=== PATIENT | female | born 1955 | race Caucasian/White ===

== ENCOUNTER → 2020-02-01 16:01 | Outpatient (POV) | payer SELFPAY | PROVIDERS: Visit Provider Dermatology | DX: Z00.00 Encounter for general adult medical examination without abnormal findings (principal) ==

== ENCOUNTER → 2022-03-05 08:46 | Outpatient (CLI) | payer MEDICARE, OTHER, SELFPAY ==
--- NOTE | 2022-03-05 08:57 | XR_ITS ---
FINAL REPORT CLINICAL HISTORY: PAIN FINDINGS: Four views of the left knee were obtained. There is no acute fracture or dislocation. Moderate degenerative change of the tibial femoral joint. Severe degenerative change of the patellofemoral joint. IMPRESSION: Advanced degenerative change. Reviewed, Interpreted and Dictated by Joey Neumann MD Transcribed by Louis Camarena Authenticated and [facility]
== END ==
PROVIDERS: PCP Emergency Medicine; Visit Provider Physician Assistant Surgical
DX: M25.562 Pain in left knee (principal)
CPT/HCPCS: 73562

== ENCOUNTER → 2023-01-02 13:23 | Outpatient (CLI) | payer MEDICARE, OTHER, SELFPAY ==
--- NOTE | 2023-01-02 13:27 | XR_ITS ---
FINAL REPORT CLINICAL HISTORY: rt foot pain COMPARISON: None FINDINGS: RIGHT FOOT: Three views of the right foot were obtained. There is no acute fracture or dislocation. There is mild degenerative change. There is no soft tissue abnormality. IMPRESSION: Mild degenerative change without acute bony abnormality. Reviewed, Interpreted and Dictated by Mark Lawrence III, MD Transcribed by Magi Carrasco Authenticated and [facility]
== END ==
PROVIDERS: PCP Emergency Medicine; Visit Provider Orthopaedic Surgery
DX: M79.671 Pain in right foot (principal)
CPT/HCPCS: 73630

== ENCOUNTER 2024-10-28 12:54 | Outpatient (CLI) | payer MEDICARE, OTHER, SELFPAY ==
--- NOTE | 2024-10-28 12:55 | XR_ITS ---
FINAL REPORT CLINICAL HISTORY: left knee pain FINDINGS: AP, lateral and oblique views of the left knee were obtained. There is no prior exam for comparison. There is no acute osseous abnormality of the left knee. There is degenerative joint disease most pronounced in the patellofemoral compartment. The soft tissues are normal. There is no joint effusion. IMPRESSION: No acute osseous abnormality of the left knee. Reviewed, Interpreted and Dictated by Keara Roberts MD Transcribed by Karey Ballard Authenticated and [facility]
--- OUTSIDE RECORDS SUMMARY | 2024-10-28 12:59 | XMS_ITS | Encounter Summary ---
Author Organization [employer] ([place], [place], [place], [place]) Address [address] [place] [address] Care Team Providers Care Channel Sales Manager Name Role Phone Unavailable Primary Care Provider Unavailabl e Encounter Details Date Type Department Care Team (Late st Contact Info) Description 03/10/2019 Transcribed Document [facility] Family Medicine [facility] [place] [address] ProviderZaid MD [address] [place] [id number] Social History Tobacco Use Types Packs/Day Years Used Date Smoking Tobacco: Never Assessed Comments Unknown Sex and Gender Information Value Date Recorded Sex Assigned at Not on file Legal Sex Female 6:51 PM CDT Gender Identity Not on file Sexual Orientation Not on file documented as of this encounter Miscellaneous Notes * Cerner Conversion Note - Zaid Rutherford MD - 03/10/2019 8:15 AM 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 REFERRING PHYSICIAN: 1. Dr. Niurka Elias. 2. DARRYL Reynolds. PROCEDURE: Standard left heart catheterization. TECHNIQUE: A 5/6-Maltese sheath placed in the right radial artery. Elijah catheter was used for selective angiography of left coronary artery obtaining pressures in the left ventricle. JR4 diagnostic catheter was used for selective angiography of the right coronary artery. Following the diagnostic catheterization, the radial artery sheath was removed and the access site successfully compressed using a TR band. No complications. HEMODYNAMICS: Left ventricle 120/15 mmHg, aorta 120/60 mmHg. DIAGNOSES: 1. Angiographically normal coronary artery. 2. Normal left ventricular filling pressure without gradient across the aortic valve. CORONARY ANATOMY: 1. Left main trunk: Angiographically normal. 2. LAD: Large caliber vessel, which gives rise to several small caliber diagonal branches before extending beyond the apex. The LAD and diagonal branches are angiographically normal. 3. Circumflex artery: Large caliber vessel, which gives rise to a tiny high lateral branch, moderate caliber lateral branch, small caliber posterolateral branch. The circumflex artery is angiographically normal. 4. Right coronary artery: Dominant vessel. Large caliber vessel, which gives rise to a small caliber posterior descending artery and a small caliber posterolateral branch. The right coronary artery looks angiographically normal. 5. Left ventricle: Normal left ventricular filling pressure without gradient across the aortic valve. IMPRESSION: Angiographically, the patient has normal coronary arteries. There is no indication for revascularization. Assessment or noncardiac dyspnea and chest pain and risk factor modification recommended. /[id number] Gabriel Nolan MD SSL/AQ / SSL / MODL /[id number] CC: DARRYL Madrigal documented in this encounter Plan of Treatment Not on file documented as of this encounter Visit Diagnoses Not on filedocumented in this encounter
--- OUTSIDE RECORDS SUMMARY | 2024-10-28 12:59 | XMS_ITS | Encounter Summary ---
Author Organization [employer] ([place], [place], [place], [place]) Address [address] [place] [address] Care Team Providers Care Bone Crusher Name Role Phone Unavailable Primary Care Provider Unavailabl e Encounter Details Date Type Department Care Team (Late st Contact Info) Description 03/10/[address] 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 Adult Entered On: 03/10/2019 6:26 EST Performed On: 03/10/2019 6:19 EST by EZEKIEL FLEMING RN Height and Weight, Clinical Dosing Height Source : Stated Height Entry Format : [place] Height, Feet : 5 ft(Converted to: 152 cm, 60 Inch) Height, Inches : 4 Inch(Converted to: 0 ft 4 Inch, 10.16 cm) Clinical Height : 162.56 cm Weight Source : Standing scale Weight Entry Format : [place] Clinical Dosing Weight : 98.18 kg Weight, Pounds : 216 lb Body Surface Area (BSA) : 2.02 m2 Body Mass Index : 37.2 kg/m2 (HI) [place] Body Weight : 54 kg EZEKIEL FLEMING RN - 03/10/2019 6:19 EST Health Histories Smoking Status : Former smoker, quit more than 30 days ago Smokeless Tobacco Status : Never EZEKIEL FLEMING RN - 03/10/2019 6:19 EST Social History (As Of: 03/10/2019 06:26:10 EST) Tobacco: Former smoker, quit more than 30 days ago Smoking Status. Years of Use: 12. Packs/Tins Daily: 1. Last Used: quit 20 years ago. (Last Updated: 03/10/2019 06:19:48 EST by EZEKIEL FLEMING, RN) Alcohol: Alcohol Use History Yes. Alcohol Use Frequency Rarely. (Last Updated: 03/10/2019 06:19:56 EST by EZEKIEL FLEMING, RN) Substance Abuse: Drug Use Hx: No. (Last Updated: 03/10/2019 06:20:00 EST by EZEKIEL FLEMING, RN) Infectious Disease History Infectious Disease History : Chicken pox/Shingles, Influenza, Measles Fever/Chills Last 48 Hours : No Travel To Regions with Travel Advisories : No Travel Outside [place] Within Last 30 Days : No Contact With Traveler to Advisory Region : No Tuberculosis Symptoms : None EZEKIEL FLEMING RN - 03/10/2019 6:19 EST Anesthesia/Transfusion History Family History of Anesthesia Reaction : No prior transfusion(s) Blood Transfusion Acceptable to Patient : Yes Transfusion History : Prior anesthesia without reaction Family History of Anesthesia Reaction : None EZEKIEL FLEMING RN - 03/10/2019 6:19 EST Functional Assessment Living Situation : Home Patient Lives With : Alone Persons Assisting Patient at Home : Alone Current Daily Living Assistance : None Mobility Assistance Prior to Admission : Independent Current Home Treatments : None EZEKIEL FLEMING RN - 03/10/2019 6:19 EST [place] Suicide Severity Rating Scale (C-SSRS) CSSRS Past Month Wish to be : No CSSRS Past Month Suicidal Thoughts : No CSSRS Lifetime Suicide Behavior : No Suicide Severity Rating Score : 0 Suicide Severity Rating : No Additional Care Required at this time EZEKIEL FLEMING RN - 03/10/2019 6:19 EST Psychosocial History Does Someone Depend on You for Care? : No Do You Have a History of the Following? : Patient denies history Currently in Unsafe Situation : No EZEKIEL FLEMING RN - 03/10/2019 6:19 EST Advance Directive Patient has Advance Directive *Q : Yes, Advance Directive not with the patient Advance Directive Type : Living will Copy Advance Directive Verified/on Chart : No EZEKIEL FLEMING RN - 03/10/2019 6:19 EST Spiritual/Cultural Needs Significant Loss/Crisis in Past 3 Years : No Any Spiritual/Cultural Needs or Requests : Yes Mandaen Preference : Mandaen EZEKIEL FLEMING RN - 03/10/2019 6:19 EST Teaching/Learning Assessment Barriers To Learning : None evident Individuals Taught : Patient Readiness to Learn : Cooperative Learning Style Preferences Patient : Verbal explanation EZEKIEL FLEMING RN - 03/10/2019 6:19 EST Education Topics, Periop Preadmission Perioperative Education Grid IV's : Verbalizes understanding NPO Status/Directions : Verbalizes understanding Responsible Adult : Verbalizes understanding EZEKIEL FLEMING RN - 03/10/2019 6:19 EST General Info Arrived From : Home Mode of Arrival on Unit : Ambulatory Legal Guardian : Son Want Family/Rep/Phys Notified of Admit : No Emergency Contact #1 : Danilo Emergency Contact #1 Emergency Contact #1 Relationship : son Emergency Contact #2 : Mary Jane Emergency Contact #2 Emergency Contact #2 Relationship : sister Chief Complaint : here for cardiac cath Information Obtained From : Patient Primary Language : Mohawk Preferred Communication Mode : Verbal Communication Barrier : None EZEKIEL FLEMING RN - 03/10/2019 6:19 EST Vital Measurements Temperature Mode : Fahrenheit Temperature, Fahrenheit : 97.4 Deg F Clinical Temperature, C : 36.3 Deg C Pulse Method : Non-Invasive BP Device Peripheral Pulse Rate : 80 bpm Respiratory Rate : 16 Breaths/Min Blood Pressure Location : Arm, right upper Blood Pressure Source : Non-Invasive BP Device Systolic Blood Pressure : 160 mmHg (HI) Diastolic Blood Pressure : 84 mmHg Oxygen Saturation : 99 % Oxygen Therapy Mode : Room air EZEKIEL FLEMING RN - 03/10/2019 6:19 EST Sleep Apnea Risk Assmt Hx of Obstructive Sleep Apnea Diagnosis : No Snore Loudly : Yes Tired, Fatigued, or Sleepy During Day : No Observed Stopping Breathing During Sleep : No Have/Are Being Treated for Hypertension : No BMI Greater Than 35 kg/m2 : Yes Age over 50 Years Old : Yes Neck Circumference Greater Than 40 cm : No Gender Male : No STOP-BANG Sleep Apnea Risk Level Score : 3 EZEKIEL FLEMING RN - 03/10/2019 6:19 EST Luis Miguel Scale Luis Miguel Sensory Perception : No impairment Luis Miguel Moisture : Rarely moist Luis Miguel Activity : Walks frequently Luis Miguel Mobility : Slightly limited Luis Miguel Nutrition : Adequate Luis Miguel Friction and Shear : Potential problem Luis Miguel Score : 20 EZEKIEL FLEMING RN - 03/10/2019 6:19 EST Oxygen Therapy Oxygen Therapy Mode : Room air EZEKIEL FLEMING RN - 03/10/2019 6:19 EST Pain Assessment Pain Assessment : Initial assessment Pain Scale Used : 0-10 Scale EZEKIEL FLEMING RN - 03/10/2019 6:19 EST Fall Risk Scales ABCs Fall Injury Risk Identification : Bones ABC Fall Injury Risk : Moderate to high injury risk WOLFE Hx Falls Immediate/Within 3 Months : No Wolfe Secondary Diagnosis : No WOLFE Use of Ambulatory Aid : None WOLFE IV Therapy or IV Access : Yes Wolfe Gait/Transferring : Normal, bedrest, immobile Wolfe Mental Status : Oriented to own ability Wolfe Fall Risk Score : 20 WOLFE Fall Scale Risk Level : 0-24 Low Risk Little Neck Fall Interventions : Adequate lighting, Hourly comfort/safety rounds, Non-slip footwear, Personal items within reach, Room free of clutter/spills, Upper side-rails up, Wheels locked, Wires/Cords secured EZEKIEL FLEMING RN - 03/10/2019 6:19 EST Valuables and Belongings Valuables and Belongings : Clothing, Jewelry, Personal devices, Personal items, No assistive devices, No respiratory devices, No medications Clothing : Common streetwear Clothing Disposition : Bedside Personal Device Disposition : With patient Jewelry : Earrings Jewelry Disposition : With patient Personal Devices : Dentures, upper, Dentures, lower, Glasses Personal Items : Cazares, Cell phone, Credit cards, Purse, Wallet Personal Items Disposition : With family EZEKIEL FLEMING RN - 03/10/2019 6:19 EST Pain Scale Intensity : 0 EZEKIEL FLEMING RN - 03/10/2019 6:19 EST Image 4 - Images currently included in the form version of this document have not been included in the text rendition version of the form. Tosha Coma Tosha Best Motor Response : Obey commands Tosha Best Verbal Response : Oriented [place] Eye Opening Response : Spontaneous Tosha Coma Score : 15 EZEKIEL FLEMING RN - 03/10/2019 6:19 EST Electronically signed by [facility], [facility] Conversion Ultr[employer] Cerner at 06/20/2022 12:23 AM CDT documented in this encounter Plan of Treatment Not on file documented as of this encounter Visit Diagnoses Not on filedocumented in this encounter
--- OUTSIDE RECORDS SUMMARY | 2024-10-28 12:59 | XMS_ITS | Encounter Summary ---
Author Organization [employer] ([place], [place], [place], [place]) Address [address] [place] [address] Care Team Providers Care School Athletic Director Name Role Phone Unavailable Primary Care Provider Unavailabl e Encounter Details Date Type Department Care Team (Late st Contact Info) Description 03/10/2019 Transcribed Document [facility] [place] [facility] [place] [address] ProviderZaid MD [facility] [place] [address] Social History Tobacco Use Types Packs/Day Years Used Date Smoking Tobacco: Never Assessed Comments Unknown Sex and Gender Information Value Date Recorded Sex Assigned at Not on file Legal Sex Female 6:51 PM CDT Gender Identity Not on file Sexual Orientation Not on file documented as of this encounter Miscellaneous Notes * Cerner Conversion Note - Historical ProviderMD - 03/10/2019 9:13 AM MOLD OPERATOR Event Note Entered On: 03/10/2019 9:13 EST Performed On: 03/10/2019 9:13 EST by EZEKIEL FLEMING RN Event Note Event Date/Time : 03/10/2019 9:13 EST EZEKIEL FLEMING RN - 03/10/2019 9:13 EST Description of Event : 09: spoke with Coco Blanco RN regarding pt's blood pressure of 150's/107. Pt is asymptomatic. Dr. Nolan has spoken with pt about her hypertension and is changing her dose of Metoprolol to 50 mg daily at 1800. No new orders. PABLITO Salas CARLA L, RN - 03/10/2019 9:24 EST documented in this encounter Plan of Treatment Not on file documented as of this encounter Visit Diagnoses Not on filedocumented in this encounter
--- OUTSIDE RECORDS SUMMARY | 2024-10-28 12:59 | XMS_ITS | Encounter Summary ---
Author Organization [employer] ([place], [place], [place], [place]) Address [address] [place] [address] Care Team Providers Care Rougher Operator Name Role Phone Unavailable Primary Care Provider Unavailabl e Encounter Details Date Type Department Care Team (Late st Contact Info) Description 03/10/2019 Transcribed Document [facility] [place] Family Medicine [facility] [place] [address] ProviderZaid MD [address] [place] [address] Social History Tobacco Use Types Packs/Day Years Used Date Smoking Tobacco: Never Assessed Comments Unknown Sex and Gender Information Value Date Recorded Sex Assigned at Not on file Legal Sex Female 6:51 PM CDT Gender Identity Not on file Sexual Orientation Not on file documented as of this encounter Miscellaneous Notes * Cerner Conversion Note - Zaid Rutherford MD - 03/10/2019 8:43 AM [employer] Patient Education Materials Follows: Hypertension Hypertension, commonly called high blood pressure, is when the force of blood pumping through the arteries is too strong. The arteries are the blood vessels that carry blood from the heart throughout the body. Hypertension forces the heart to work harder to pump blood and may cause arteries to become narrow or stiff. Having untreated or uncontrolled hypertension can cause heart attacks, strokes, kidney disease, and other problems. A blood pressure reading consists of a higher number over a lower number. Ideally, your blood pressure should be below 120/80. The first ( top ) number is called the systolic pressure. It is a measure of the pressure in your arteries as your heart beats. The second ( bottom ) number is called the diastolic pressure. It is a measure of the pressure in your arteries as the heart relaxes. What are the causes? The cause of this condition is not known. What increases the risk? Some risk factors for high blood pressure are under your control. Others are not. Factors you can change ??? Smoking. ??? Having type 2 diabetes mellitus, high cholesterol, or both. ??? Not getting enough exercise or physical activity. ??? Being overweight. ??? Having too much fat, sugar, calories, or salt (sodium) in your diet. ??? Drinking too much alcohol. Factors that are difficult or impossible to change ??? Having chronic kidney disease. ??? Having a family history of high blood pressure. ??? Age. Risk increases with age. ??? Race. You may be at higher risk if you are -Chinese. ??? Gender. Men are at higher risk than women before age 45. After age 65, women are at higher risk than men. ??? Having obstructive sleep apnea. ??? Stress. What are the signs or symptoms? Extremely high blood pressure (hypertensive crisis) may cause: ??? Headache. ??? Anxiety. ??? Shortness of breath. ??? Nosebleed. ??? Nausea and vomiting. ??? Severe chest pain. ??? Jerky movements you cannot control (seizures). How is this diagnosed? This condition is diagnosed by measuring your blood pressure while you are seated, with your arm resting on a surface. The cuff of the blood pressure monitor will be placed directly against the skin of your upper arm at the level of your heart. It should be measured at least twice using the same arm. Certain conditions can cause a difference in blood pressure between your right and left arms. Certain factors can cause blood pressure readings to be lower or higher than normal (elevated) for a short period of time: ??? When your blood pressure is higher when you are in a health care provider's office than when you are at home, this is called white coat hypertension. Most people with this condition do not need medicines. ??? When your blood pressure is higher at home than when you are in a health care provider's office, this is called masked hypertension. Most people with this condition may need medicines to control blood pressure. If you have a high blood pressure reading during one visit or you have normal blood pressure with other risk factors: ??? You may be asked to return on a different day to have your blood pressure checked again. ??? You may be asked to monitor your blood pressure at home for 1 week or longer. If you are diagnosed with hypertension, you may have other blood or imaging tests to help your health care provider understand your overall risk for other conditions. How is this treated? This condition is treated by making healthy lifestyle changes, such as eating healthy foods, exercising more, and reducing your alcohol intake. Your health care provider may prescribe medicine if lifestyle changes are not enough to get your blood pressure under control, and if: ??? Your systolic blood pressure is above 130. ??? Your diastolic blood pressure is above 80. Your personal target blood pressure may vary depending on your medical conditions, your age, and other factors. Follow these instructions at home: Eating and drinking ??? Eat a diet that is high in fiber and potassium, and low in sodium, added sugar, and fat. An example eating plan is called the DASH (Dietary Approaches to Stop Hypertension) diet. To eat this way: ? Eat plenty of fresh fruits and vegetables. Try to fill half of your plate at each meal with fruits and vegetables. ? Eat whole grains, such as whole wheat pasta, brown rice, or whole grain bread. Fill about one quarter of your plate with whole grains. ? Eat or drink low-fat dairy products, such as skim milk or low-fat yogurt. ? Avoid fatty cuts of meat, processed or cured meats, and poultry with skin. Fill about one quarter of your plate with lean proteins, such as fish, chicken without skin, beans, eggs, and tofu. ? Avoid premade and processed foods. These tend to be higher in sodium, added sugar, and fat. ??? Reduce your daily sodium intake. Most people with hypertension should eat less than 1,500 mg of sodium a day. ??? Limit alcohol intake to no more than 1 drink a day for non women and 2 drinks a day for men. One drink equals 12 oz of beer, 5 oz of wine, or 1? oz of hard liquor. Lifestyle ??? Work with your health care provider to maintain a healthy body weight or to lose weight. Ask what an ideal weight is for you. ??? Get at least 30 minutes of exercise that causes your heart to beat faster (aerobic exercise) most days of the week. Activities may include walking, swimming, or biking. ??? Include exercise to strengthen your muscles (resistance exercise), such as pilates or lifting weights, as part of your weekly exercise routine. Try to do these types of exercises for 30 minutes at least 3 days a week. ??? Do not use any products that contain nicotine or tobacco, such as cigarettes and e-cigarettes. If you need help quitting, ask your health care provider. ??? Monitor your blood pressure at home as told by your health care provider. ??? Keep all follow-up visits as told by your health care provider. This is important. Medicines ??? Take vyby-ymi-sxgtsjv and prescription medicines only as told by your health care provider. Follow directions carefully. Blood pressure medicines must be taken as prescribed. ??? Do not skip doses of blood pressure medicine. Doing this puts you at risk for problems and can make the medicine less effective. ??? Ask your health care provider about side effects or reactions to medicines that you should watch for. Contact a health care provider if: ??? You think you are having a reaction to a medicine you are taking. ??? You have headaches that keep coming back (recurring). ??? You feel dizzy. ??? You have swelling in your ankles. ??? You have trouble with your vision. Get help right away if: ??? You develop a severe headache or confusion. ??? You have unusual weakness or numbness. ??? You feel faint. ??? You have severe pain in your chest or abdomen. ??? You vomit repeatedly. ??? You have trouble breathing. Summary ??? Hypertension is when the force of blood pumping through your arteries is too strong. If this condition is not controlled, it may put you at risk for serious complications. ??? Your personal target blood pressure may vary depending on your medical conditions, your age, and other factors. For most people, a normal blood pressure is less than 120/80. ??? Hypertension is treated with lifestyle changes, medicines, or a combination of both. Lifestyle changes include weight loss, eating a healthy, low-sodium diet, exercising more, and limiting alcohol. This information is not intended to replace advice given to you by your health care provider. Make sure you discuss any questions you have with your health care provider. Document Released: 02/17/2006 Document Revised: 01/15/2017 Document Reviewed: 01/15/2017 [employer] Interactive Patient Education ? 2019 [employer] Moderate Conscious Sedation, Adult, Care After These instructions provide you with information about caring for yourself after your procedure. Your health care provider may also give you more specific instructions. Your treatment has been planned according to current medical practices, but problems sometimes occur. Call your health care provider if you have any problems or questions after your procedure. What can I expect after the procedure? After your procedure, it is common: ??? To feel sleepy for several hours. ??? To feel clumsy and have poor balance for several hours. ??? To have poor judgment for several hours. ??? To vomit if you eat too soon. Follow these instructions at home: For at least 24 hours after the procedure: ??? Do not: ? Participate in activities where you could fall or become injured. ? Drive. ? Use heavy machinery. ? Drink alcohol. ? Take sleeping pills or medicines that cause drowsiness. ? Make important decisions or sign legal documents. ? Take care of children on your own. ??? Rest. Eating and drinking ??? Follow the diet recommended by your health care provider. ??? If you vomit: ? Drink water, juice, or soup when you can drink without vomiting. ? Make sure you have little or no nausea before eating solid foods. General instructions ??? Have a responsible adult stay with you until you are awake and alert. ??? Take btvh-jeg-gvlbocu and prescription medicines only as told by your health care provider. ??? If you smoke, do not smoke without supervision. ??? Keep all follow-up visits as told by your health care provider. This is important. Contact a health care provider if: ??? You keep feeling nauseous or you keep vomiting. ??? You feel light-headed. ??? You develop a rash. ??? You have a fever. Get help right away if: ??? You have trouble breathing. This information is not intended to replace advice given to you by your health care provider. Make sure you discuss any questions you have with your health care provider. Document Released: 12/08/2013 Document Revised: 07/22/2016 Document Reviewed: 06/08/2016 [employer] Interactive Patient Education ? 2019 [employer] [facility] Care Refer to this sheet in the next few weeks. These instructions provide you with information about caring for yourself after your procedure. Your health care provider may also give you more specific instructions. Your treatment has been planned according to current medical practices, but problems sometimes occur. Call your health care provider if you have any problems or questions after your procedure. What can I expect after the procedure? After your procedure, it is typical to have the following: ??? Bruising at the radial site that usually fades within 1?2 weeks. ??? Blood collecting in the tissue (hematoma) that may be painful to the touch. It should usually decrease in size and tenderness within 1?2 weeks. Follow these instructions at home: ??? Take medicines only as directed by your health care provider. ??? You may shower 24?48 hours after the procedure or as directed by your health care provider. Remove the bandage (dressing) and gently wash the site with plain soap and water. Pat the area dry with a clean towel. Do not rub the site, because this may cause bleeding. ??? Do not take baths, swim, or use a hot tub until your health care provider approves. ??? Check your insertion site every day for redness, swelling, or drainage. ??? Do not apply powder or lotion to the site. ??? Do not flex or bend the affected arm for 24 hours or as directed by your health care provider. ??? Do not push or pull heavy objects with the affected arm for 24 hours or as directed by your health care provider. ??? Do not lift over 10 lb (4.5 kg) for 5 days after your procedure or as directed by your health care provider. ??? Ask your health care provider when it is okay to: ? Return to work or school. ? Resume usual physical activities or sports. ? Resume sexual activity. ??? Do not drive home if you are discharged the same day as the procedure. Have someone else drive you. ??? You may drive 24 hours after the procedure unless otherwise instructed by your health care provider. ??? Do not operate machinery or power tools for 24 hours after the procedure. ??? If your procedure was done as an outpatient procedure, which means that you went home the same day as your procedure, a responsible adult should be with you for the first 24 hours after you arrive home. ??? Keep all follow-up visits as directed by your health care provider. This is important. Contact a health care provider if: ??? You have a fever. ??? You have chills. ??? You have increased bleeding from the radial site. Hold pressure on the site. Get help right away if: ??? You have unusual pain at the radial site. ??? You have redness, warmth, or swelling at the radial site. ??? You have drainage (other than a small amount of blood on the dressing) from the radial site. ??? The radial site is bleeding, and the bleeding does not stop after 30 minutes of holding steady pressure on the site. ??? Your arm or hand becomes pale, cool, tingly, or numb. This information is not intended to replace advice given to you by your health care provider. Make sure you discuss any questions you have with your health care provider. Document Released: 03/22/2011 Document Revised: 07/25/2016 Document Reviewed: 09/05/2014 [employer] Interactive Patient Education ? 2019 [employer]. Angiogram, Care After This sheet gives you information about how to care for yourself after your procedure. Your health care provider may also give you more specific instructions. If you have problems or questions, contact your health care provider. What can I expect after the procedure? After the procedure, it is common to have bruising and tenderness at the catheter insertion area. Follow these instructions at home: Insertion site care ??? Follow instructions from your health care provider about how to take care of your insertion site. Make sure you: ? Wash your hands with soap and water before you change your bandage (dressing). If soap and water are not available, use hand director of athletics. ? Change your dressing as told by your health care provider. ? Leave stitches (sutures), skin glue, or adhesive strips in place. These skin closures may need to stay in place for 2 weeks or longer. If adhesive strip edges start to loosen and curl up, you may trim the loose edges. Do not remove adhesive strips completely unless your health care provider tells you to do that. ??? Do not take baths, swim, or use a hot tub until your health care provider approves. ??? You may shower 24?48 hours after the procedure or as told by your health care provider. ? Gently wash the site with plain soap and water. ? Pat the area dry with a clean towel. ? Do not rub the site. This may cause bleeding. ??? Do not apply powder or lotion to the site. Keep the site clean and dry. ??? Check your insertion site every day for signs of infection. Check for: ? Redness, swelling, or pain. ? Fluid or blood. ? Warmth. ? Pus or a bad smell. Activity ??? Rest as told by your health care provider, usually for 1?2 days. ??? Do not lift anything that is heavier than 10 lbs. (4.5 kg) or as told by your health care provider. ??? Do not drive for 24 hours if you were given a medicine to help you relax (sedative). ??? Do not drive or use heavy machinery while taking prescription pain medicine. General instructions ??? Return to your normal activities as told by your health care provider, usually in about a week. Ask your health care provider what activities are safe for you. ??? If the catheter site starts bleeding, lie flat and put pressure on the site. If the bleeding does not stop, get help right away. This is a medical emergency. ??? Drink enough fluid to keep your urine clear or pale yellow. This helps flush the contrast dye from your body. ??? Take ltiu-rvc-flkobkp and prescription medicines only as told by your health care provider. ??? Keep all follow-up visits as told by your health care provider. This is important. Contact a health care provider if: ??? You have a fever or chills. ??? You have redness, swelling, or pain around your insertion site. ??? You have fluid or blood coming from your insertion site. ??? The insertion site feels warm to the touch. ??? You have pus or a bad smell coming from your insertion site. ??? You have bruising around the insertion site. ??? You notice blood collecting in the tissue around the catheter site (hematoma). The hematoma may be painful to the touch. Get help right away if: ??? You have severe pain at the catheter insertion area. ??? The catheter insertion area swells very fast. ??? The catheter insertion area is bleeding, and the bleeding does not stop when you hold steady pressure on the area. ??? The area near or just beyond the catheter insertion site becomes pale, cool, tingly, or numb. These symptoms may represent a serious problem that is an emergency. Do not wait to see if the symptoms will go away. Get medical help right away. Call your local emergency services (911 in the [place] Do not drive yourself to the hospital. Summary ??? After the procedure, it is common to have bruising and tenderness at the catheter insertion area. ??? After the procedure, it is important to rest and drink plenty of fluids. ??? Do not take baths, swim, or use a hot tub until your health care provider says it is okay to do so. You may shower 24?48 hours after the procedure or as told by your health care provider. ??? If the catheter site starts bleeding, lie flat and put pressure on the site. If the bleeding does not stop, get help right away. This is a medical emergency. This information is not intended to replace advice given to you by your health care provider. Make sure you discuss any questions you have with your health care provider. Document Released: 09/05/2005 Document Revised: 01/22/2017 Document Reviewed: 01/22/2017 [employer] Interactive Patient Education ? 2019 [employer] documented in this encounter Plan of Treatment Not on file documented as of this encounter Visit Diagnoses Not on filedocumented in this encounter
--- OUTSIDE RECORDS SUMMARY | 2024-10-28 12:59 | XMS_ITS | Encounter Summary ---
Author Organization [employer] ([place], [place], [place], [place]) Address [address] [place] [address] Care Team Providers Care Escort Service Attendant Name Role Phone Unavailable Primary Care Provider Unavailabl e Encounter Details Date Type Department Care Team (Late st Contact Info) Description 03/10/2019 Transcribed Document [facility] [place] Family Medicine [facility] [place] [address] ProviderZaid MD [address] [place] [address] Social History Tobacco Use Types Packs/Day Years Used Date Smoking Tobacco: Never Assessed Comments Unknown Sex and Gender Information Value Date Recorded Sex Assigned at Not on file Legal Sex Female 6:51 PM CDT Gender Identity Not on file Sexual Orientation Not on file documented as of this encounter Miscellaneous Notes * Cerner Conversion Note - Zaid ProviderMD - 03/10/2019 6:26 AM [employer] Spiritual Care Assessment Entered On: 03/10/2019 7:45 EST Performed On: 03/10/2019 6:52 EST by BHAKTI INIGUEZ General Information Initial Visit : Yes Referred by : Patient Referral Reason Comment : Pre-procedure visit Ministry Provided to : Patient, Family/Significant other Church Preference : [employer] BHAKTI INIGUEZ P - 03/10/2019 7:44 EST Spiritual Assessment Spiritual Assessment Comment/Summary Points : Pre-procedure visit and prayer with patient, son and sister. Spirital Assessment Comment/Summary Report : SPIRITUAL ASSESSMENT COMMENT/SUMMARY No qualifying data available. BHAKTI INIGUEZ P - 03/10/2019 7:44 EST Interventions Emotional Support : Empathic/Engaged listening, Family/Significant other supported Spiritual and Church : Prayer shared, Spiritual/Church support provided BHAKTI INIGUEZ P - 03/10/2019 7:44 EST Electronically signed by [facility] [employer] at 06/20/2022 12:14 AM CDT documented in this encounter Plan of Treatment Not on file documented as of this encounter Visit Diagnoses Not on filedocumented in this encounter
--- OUTSIDE RECORDS SUMMARY | 2024-10-28 12:59 | XMS_ITS | Referral Summary ---
Author Organization [employer] ([place], [place], [place], [place]) Address [address] [place] [id number] Care Team Providers Care Children'S Nursery Assistant Name Role Phone Unavailable Primary Care Provider Unavailabl e Social History Tobacco Use Types Packs/Day Years Used Date Smoking Tobacco: Never Assessed Comments Unknown Sex and Gender Information Value Date Recorded Sex Assigned at Not on file Legal Sex Female 6:51 PM CDT Gender Identity Not on file Sexual Orientation Not on file Plan of Treatment Not on file
--- OUTSIDE RECORDS SUMMARY | 2024-10-28 12:59 | XMS_ITS | Encounter Summary ---
Author Organization [facility] ([place], [place], [place], [place]) Address [address] [place] [address] Care Team Providers Care Decal Decorator Name Role Phone Unavailable Primary Care Provider Unavailabl e Encounter Details Date Type Department Care Team (Late st Contact Info) Description 03/10/2019 Transcribed Document [facility] [place] Medicine [facility] [place] [address] ProviderZaid MD [address] [place] [address] Social History Tobacco Use Types Packs/Day Years Used Date Smoking Tobacco: Never Assessed Comments Unknown Sex and Gender Information Value Date Recorded Sex Assigned at Not on file Legal Sex Female 6:51 PM CDT Gender Identity Not on file Sexual Orientation Not on file documented as of this encounter Miscellaneous Notes * Cerner Conversion Note - Zaid Rutherford MD - 03/10/2019 9:00 AM 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 She was seen by Dr Elias as with complaints of FC II shortness of breath and activity related chest tightness. She reports this occurring with physical exertion that is relieved with rest. She underwent a stress echo that was abnormal suggesting apical and mid septal ischemia, EF 55-60%. She has been scheduled for elective cardiac cath. Denies recent fluid/body weight gain, palpitations, syncope, or edema. Review of Systems Constitutional: Negative except as documented in history of present illness. Eye: Negative except as documented in history of present illness. Ear/Nose/Mouth/Throat: Negative except as documented in history of present illness. Respiratory: Negative except as documented in history of present illness. Cardiovascular: Negative except as documented in history of present illness. Gastrointestinal: Negative except as documented in history of present illness. Genitourinary: Negative except as documented in history of present illness. Hematology/Lymphatics: Negative except as documented in history of present illness. Endocrine: Negative except as documented in history of present illness. Immunologic: Negative except as documented in history of present illness. Musculoskeletal: Negative except as documented in history of present illness. Integumentary: Negative except as documented in history of present illness. Neurologic: Negative except as documented in history of present illness. Psychiatric: Negative except as documented in history of present illness. Health Status No qualifying data available No qualifying data available Allergies: Allergic Reactions (Selected) No Known Allergies Current medications: (Selected) Inpatient Medications Ordered Normal Saline Flush: 10 mL, IV Push, Q12H Normal Saline Flush: 10 mL, IV Push, Q12H Normal Saline Flush: 10 mL, IV Push, See Comment, PRN: IV Use Normal Saline Flush: 10 mL, IV Push, See Comment, PRN: IV Use Sodium Chloride 0.9% intravenous solution 500 mL: Titrate, IntraVENous Documented Medications Documented Toprol-XL 25 mg oral tablet, extended release: 0.5 Tab, Oral, Daily, 0 Refill(s) Vitamin C: 2,000 mg, Oral, Daily, 0 Refill(s) aspirin: 325 mg, Oral, Daily, 0 Refill(s) famotidine 20 mg oral tablet: 1 Tab, Oral, Daily, 30 Tab, 0 Refill(s) levothyroxine 100 mcg (0.1 mg) oral tablet: 1 Tab, Oral, Daily, 60 Tab, 0 Refill(s) naproxen sodium 220 mg oral capsule: 2 Cap, Oral, Daily, 0 Refill(s) , No qualifying data available Problem list: All Problems Allergic rhinitis / SNOMED CT 699548100 / Confirmed Angina / SNOMED CT 777456246 / Confirmed Arthritis / SNOMED CT 1705997 / Confirmed At risk for sleep apnea / IMO 78646408 / Confirmed Cataract / SNOMED CT 586830928 / Confirmed GERD - Gastro-esophageal reflux disease / SNOMED CT 5550745940 / Confirmed Hypothyroidism / SNOMED CT 26794060 / Confirmed Migraine / SNOMED CT 11285318 / Confirmed Osteoporosis / SNOMED CT 816607664 / Confirmed Resolved: Anemia / SNOMED CT 633636872 Resolved: Bronchitis / SNOMED CT 06082491 Resolved: Sinusitis / SNOMED CT 70634334 , No qualifying data available Histories No education data available. Social & Psychosocial Habits No Data Available Past Medical History: Active Hypothyroidism (58188257) Family History: Non contributory Procedure history: c sections x 2. D and C. tubal ligation. nasal deviated septum repair. left hip replacement. surgery to both eyes to lessen fluid build up to prevent glaucoma. Social History Social & Psychosocial Habits Alcohol 03/10/2019 Alcohol Use History, Social Habits Yes Alcohol Use Frequency Rarely Substance Abuse 03/10/2019 Recreational Drug Use History No Tobacco 03/10/2019 Smoking Status Former smoker, quit more Years of Tobacco Use 12 Packs/Tins Daily 1 Month Tobacco Last Used quit 20 years ago . Physical Examination VS/Measurements No qualifying data available General: Alert and oriented. Eye: Pupils are equal, round and reactive to light. HENT: Normocephalic. Neck: Supple, No carotid bruit, No jugular venous distention. Respiratory: Lungs are clear to auscultation, Respirations are non-labored, Breath sounds are equal. Cardiovascular: Normal rate, Regular rhythm, No murmur, No gallop, Good pulses equal in all extremities. Gastrointestinal: Soft, Non-tender, Non-distended, Normal bowel sounds. Musculoskeletal: Normal range of motion, Normal strength. Integumentary: Warm, Dry, Lead. Neurologic: Alert, Oriented. Psychiatric: Cooperative. Review / Management No qualifying data available Cardiac Markers (Current Encounter/Past 24 Hours) No Cardiac Marker Results Found (Past 24 Hours) Blood Gases (Current Encounter/Past 24 Hours) No Blood Gas Results Found (Past 24 Hours) No Radiology Results Found Results review: No qualifying data available. Impression and Plan IMPRESSION: * CAC II angina Abnormal stress echo suggesting apical and mid septal ischemia, EF 55-60%. *Obesity *Hypertension * Former smoker PLAN; Cardiac cath via R radial approach with possible catheter based intervention. Risks, benefits, and alternative therapy discussed in detail. She has given verbal and written consent. BP log. Continue Metoprolol & increase dose as needed. Add HCTZ pending BP. Minimize NSAIDS. ASA, statin pending cath findings. Addendum-Angiographically normal coronary arteries. LVEDP 15 mmHg, no pressure gradient across AV. Will check proBNP & D-dimer. Non-cardiac dyspnea per primary providers. documented in this encounter Plan of Treatment Not on file documented as of this encounter Visit Diagnoses Not on filedocumented in this encounter
--- OUTSIDE RECORDS SUMMARY | 2024-10-28 12:59 | XMS_ITS | Encounter Summary ---
Author Organization [facility] ([place], [place], [place], [place]) Address [address] [place] [address] Care Team Providers Care Metalsmith Helper Name Role Phone Unavailable Primary Care Provider Unavailabl e Encounter Details Date Type Department Care Team (Late st Contact Info) Description 03/10/2019 Transcribed Document [facility] [place] [address] [place] [address] ProviderZaid MD [facility] [place] [address] Social History Tobacco Use Types Packs/Day Years Used Date Smoking Tobacco: Never Assessed Comments Unknown Sex and Gender Information Value Date Recorded Sex Assigned at Not on file Legal Sex Female 6:51 PM CDT Gender Identity Not on file Sexual Orientation Not on file documented as of this encounter Miscellaneous Notes * Cerner Conversion Note - Zaid ProviderMD - 03/10/2019 11:46 AM 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 Nursing Discharge Summary Entered On: 03/10/2019 11:46 EST Performed On: 03/10/2019 11:46 EST by EZEKIEL FLEMING corporate learning consultant Documentation Discharge Date/Time : 03/10/2019 11:30 EST Patient Disposition, General : Discharge Discharge To : Home with ambulatory/outpatient follow-up Mode Of Departure, General Discharge : Wheelchair Accompanied By, Discharge : Sibling IV Discontinued : Yes Medications Given to Patient : Yes Personal Belongings With Patient : Yes Prescriptions Given to Patient : No Discharge Instructions Reviewed With, Opportunity For Questions Given : Patient Patient Education Completed : Yes Teaching Method : Explanation Teaching Evaluation : Returns demonstration, Verbalizes understanding Worker's Compensation Paperwork Completed : No EZEKIEL FLEMING RN - 03/10/2019 11:46 EST Electronically signed by [facility] Conversion Criminal Legal Assistant Cerner at 06/20/2022 12:05 AM CDT documented in this encounter Plan of Treatment Not on file documented as of this encounter Visit Diagnoses Not on filedocumented in this encounter
--- OUTSIDE RECORDS SUMMARY | 2024-10-28 12:59 | XMS_ITS | Clinical Summary ---
Author Organization [facility] Address [address] [place] [address] Care Team Providers Care Claim Processor Name Role Phone Camron Hogue MD Primary Care Provider [phone] Allergies No known active allergies Medications levothyroxine (SYNTHROID, LEVOTHROID) 100 MCG tablet Take 1 tablet by mouth Daily. 8 Active ascorbic acid (VITAMIN C) 1000 MG tablet Take 2 tablets by mouth Daily. Active Loratadine 10 MG capsule Take 1 capsule by mouth Every Morning. Active famotidine (PEPCID) 20 MG tablet Take 1 tablet by mouth Daily. Active METAMUCIL FIBER PO Take 5 capsules by mouth Daily. Active ibuprofen (ADVIL,MOTRIN) 200 MG tablet Take 1 tablet by mouth As Needed for Mild Pain. Active CALCIUM PO Take by mouth. Acti ve fluticasone (FLONASE) 50 MCG/ACT nasal spray Administer 1 spray into the nostril(s) as directed by provider Daily. Active metoprolol succinate XL (TOPROL-XL) 25 MG 24 hr tablet Take 1 tablet by mouth 2 (Two) Times a Day. 180 tablet 3 5 Active Active Problems Problem Noted Date Diagnosed Date Mitral regurgitation 06/18/2022 Overview (06/18/2022): moderate Assessment & Plan (08/11/2024 9:53 AM EDT): Moderate mitral regurgitation, stable and symptomatic. -Update echocardiogram at follow-up visit in 6 months Assessment & Plan (08/27/2023 10:41 AM EDT): Moderate mitral regurgitation-stable, no change from previous echocardiogram 1 year ago. Asymptomatic. Assessment & Plan (02/26/2023 9:51 AM EST): Moderate mitral regurgitation-stable, no change from previous echocardiogram 1 year ago. Asymptomatic. - Follow-up in 6 months with an echocardiogram on the same day. Assessment & Plan (06/18/2022 10:24 AM EDT): Moderate mitral regurgitation-stable, no change from previous echocardiogram 1 year ago. Asymptomatic. - Surveillance echocardiogram in 1 year, approximately June 2023. Hyponatremia 04/13/2021 Postoperative pain 04/13/2021 S/P total knee arthroplasty, right 04/12/2021 HTN (hypertension) 04/12/2021 Assessment & Plan (08/11/2024 9:53 AM EDT): Hypertension is stable and controlled Continue current treatment regimen. Weight loss. Regular aerobic exercise. Blood pressure will be reassessed in 6 months. Assessment & Plan (08/27/2023 10:41 AM EDT): Hypertension is stable and controlled Continue current treatment regimen. Weight loss. Regular aerobic exercise. Blood pressure will be reassessed in 6 months. Assessment & Plan (02/26/2023 9:51 AM EST): Hypertension is Well-controlled. Continue current treatment regimen. Dietary sodium restriction. Weight loss. Regular aerobic exercise. Blood pressure will be reassessed at the next regular appointment. Assessment & Plan (06/18/2022 10:26 AM EDT): Hypertension is Well-controlled. Continue current treatment regimen. Dietary sodium restriction. Weight loss. Regular aerobic exercise. Blood pressure will be reassessed at the next regular appointment. Blood pressure slightly elevated today at 132/98. Patient has a headache and possible sinus infection. Scheduled to see primary care provider today. -Continue metoprolol Primary osteoarthritis of right knee 03/14/2021 Anemia due to blood loss, acute, mild, asymptoma tic 11/14/2017 Acute postoperative pain 11/14/2017 Status post total replacement of left hip 2017 Hypothyroid 11/13/2017 Prediabetes 11/13/2017 Primary osteoarthritis of left hip 08/12/2017 Overview (08/12/2017): Added automatically from request for surgery [id number] Encounters Date Type Department Care Team Description 09/16/2024 Telephone [facility] [place] [phone] Silvia Cash, YOLA SESHERRELL - MEDICAL CONCERNS 08/20/[address] [place] [phone] Iris Elias MD [facility] - RECORD REQUEST 08/11/2024 9:00 AM EDT Office Visit [place] [address] [facility] [place] [phone] Sonia Marion, WAYS OPERATOR Mitral valve insufficiency, unspecified etiology (Primary Dx); Hypertension, unspecified type 08/11/2024 Refill [facility] [place] [phone] Sonia Marion, YOLA Med Refill 08/11/2024 Patient rounding ([facility] only) [facility] [place] [phone] Sonia Marion, WAYS OPERATOR 08/11/2024 Travel 08/03/2024 Telephone [facility] [place] [phone] Sonia Marion, WAYS OPERATOR 08/03/2024 Telephone [place] [address] [facility] [place] [phone] Iris Elias MD from Last 3 Months Immunizations Immunization Administration Dates Next Due COVID-19 (MODERNA) 1st,2nd,3 rd Dose Monovalent 01/12/2021,06/01/2020,05/04/2020 Flublok 18+yrs 12/20/2020 Fluzone High-Dose 65+yrs 01/15/2022 Family History Medical History Relation Name Comments Heart attack Father Hypertension Father Relation Name Status Comments Father Social History Tobacco Use Types Packs/Day Years Used Date Smoking Tobacco: Former Cigarettes 0.5 15 0 03/03/1983 - 03/03/1998 Smokeless Tobacco: Never Tobacco Cessation:Counseling Given: Not Answered Alcohol Use Standard Drinks/Week Comments No 0 (1 standard drink = 0.6 oz pur e alcohol) Comments No Sex and Gender Information Value Date Recorded Sex Assigned at Female 08/10/2024 9:32 AM EDT Legal Sex Female 10:43 AM EDT Gender Identity Not on file Sexual Orientation Not on file Last Filed Vital Signs Vital Sign Reading Time Taken Comments Blood Pressure 130/74 08/11/2024 8:51 AM EDT Pulse 69 08/11/2024 8:51 AM EDT Temperature 36.6 C (97.9 F) 05/02/2021 1:39 PM EST Respiratory Rate 16 05/02/2021 1:39 PM EST Oxygen Saturation 96% 08/11/2024 8:51 AM EDT Inhaled Oxygen Concentration - - Weight 88 kg (194 lb) 08/11/2024 8:51 AM EDT Height 160 cm (5' 3 ) 08/11/2024 8:51 AM EDT Body Mass Index 34.37 08/11/2024 8:51 AM EDT Plan of Treatment Upcoming Encounters Date Type Department Care Team (Late st Contact Info) Description 02/10/2025 9:30 AM EST Ancillary Procedure [facility] [place] [phone] 02/10/2025 10:00 AM EST Office Visit [facility] [place] [phone] Silvia Cash, WAYS OPERATOR [address] [place] [address] Health Maintenance Due Date Last Done Comments MAMMOGRAM 1995 COLOGUARD 10/30/2000 COLON CANCER SCREENING 5 YEA R SIGMOIDOSCOPY 10/30/2000 CT COLONOGRAPHY 10/30/2000 FECAL OCCULT BLOOD TEST 10/30/2000 FIT Testing (1 year) 10/30/2000 HEPATITIS C SCREENING 08/11/2017 DXA SCAN 07/11/2024 07/11/2022 ANNUAL WELLNESS VISIT 08/04/2024 08/05/2023, 023 COVID-19 Vaccine (2023-04 5 season) 2024 04/26/2024, 03/30/2024, 12/04/2022, Additional history exists INFLUENZA VACCINE 12/01/2024 03/30/2024, , 01/15/2022, Additional history exists COLONOSCOPY 03/03/2031 03/03/2021, 12/01/2016 COLORECTAL CANCER SCREENING 03/03/2031 TDAP/TD VACCINES (2 - Td or Tdap) 08/31/2033 024 ZOSTER VACCINE Completed 12/03/2023, 09/01/2023 Pneumococcal Vaccine 50+ Completed 05/17/2024, 05/01 Medical Devices Implanted Type Area Accounting Officer Device Identifier Shelf Expiration Date Model / Serial / Lot Cup Acet Pinn Sector W Griptn 50mm - [id number] Implanted:Q ty: 1 on 11/13/2017 by Arsenio Antony MD at [facility] Implant Left: Hip DEPUY 06/01/2027 [id number] / / [id number] Scrw Canc Pinn 6.5x30mm - [id number] Implanted:Q ty: 1 on 11/13/2017 by Arsenio Antony MD at [facility] Implant Left: Hip DEPUY 04/02/2026 [id number] / / [id number] Liner Acet Altrx Ntrl 95z19fi Pls4 - [id number] Implanted:Q ty: 1 on 11/13/2017 by Arsenio Antony MD at [facility] Implant Left: Hip DEPUY 08/30/2022 [id number] / / [id number] Stem Fem Wilbarger Pc Tpr Offset Std Sz6 - [id number] Implanted:Q ty: 1 on 11/13/2017 by Arsenio Antony MD at [facility] Implant Left: Hip DEPUY 07/01/2027 [id number] / / [id number] Hd Fem Bioloxdelta /Art Ceram 32mm Pls1 - [id number] Implanted:Q ty: 1 on 11/13/2017 by Arsenio Antony MD at [facility] Implant Left: Hip DEPUY 07/31/2022 [id number] / / [id number] Totl Hip Coa Depuy [id number] - [id number] Implanted:Q ty: 1 on 11/13/2017 by Arsenio Antony MD at [facility] Implant Left: Hip DEPUY CAPHIPTOTALDEP7 / / Totl Hip Gription Cup Depuy Upchrg - [id number] Implanted:Q ty: 1 on 11/13/2017 by Arsenio Antony MD at [facility] Implant Left: Hip DEPUY CAPHIPGRIPUPCHRG DEP / / Dev Contrl Tiss Stratafix Symm Pds Plus Janeen Ct-1 45cm - [id number] Implanted:Q ty: 1 on 04/12/2021 by Arsenio Antony MD at [facility] Implant Right: Knee ETHICON DIV OF J AND J [id number] / / Base Tib/Kn Gen2 Nonpor Ti Sz3 Rt - [id number] Implanted:Q ty: 1 on 04/12/2021 by Arsenio Antony MD at [facility] Implant Right: Knee MCRAE AND NEPHEW [id number] 01/15/2031 [id number] / / [id number] Pat Resrf Gen2 7.5x29mm - [id number] Implanted:Q ty: 1 on 04/12/2021 by Arsenio Antony MD at [facility] Implant Right: Knee MCRAE AND NEPHEW 08/26/2030 [id number] / / [id number] Comp Fem Legion Oxinium Cr Nrw Sz6n Rt - [id number] Implanted:Q ty: 1 on 04/12/2021 by Arsenio Antony MD at [facility] Implant Right: Knee MCRAE AND NEPHEW [id number] 10/21/2030 [id number] / / [id number] Insrt Art Legion Cr Hf Xlpe Sz3to4 10mm - [id number] Implanted:Q ty: 1 on 04/12/2021 by Arsenio Antony MD at [facility] Implant Right: Knee MCRAE AND NEPHEW [id number] 11/28/2030 [id number] / / [id number] Totl Kn Rob Mcrae Nephew - [id number] Implanted:Q ty: 1 on 04/12/2021 by Arsenio Antony MD at [facility] Implant Right: Knee MCRAE AND NEPHEW [id number] / / Cmt Bone Palacos R Hi/Visc 1x40 - [id number] Implanted:Q ty: 2 on 04/12/2021 by Arsenio Antony MD at [facility] Implant Right: Knee [employer] [id number] 04/30/2022 [id number] / / [id number] Dev Contrl Tiss Stratafix Spiral Mncryl Ud 3/0 Pls 60cm - [id number] Implanted:Q ty: 1 on 04/12/2021 by Arsenio Antony MD at [facility] Implant Right: Knee ETHICON ENDO [employer] DIV OF J AND J [id number] / / Insurance MEDICARE A & B Member Subscriber Plan / Payer (Ef fective 2020-Present) Name:Debora Rockwell Member ID:[id number] Relation to Subscriber:Self Name:Debora Rockwell Subscriber ID:[id number] Payer ID:[id number] Group ID:Not on file Type:Not on file Address: [address] Advance Directives Documents on File Type Date Recorded Patient Director Epidemiology Expl anation LIVING WILL - SCAN 11/13/2017 6:02 AM LINDSAY NG WILL 11/13/2017 * CPR (Attempt to Resuscitate) (Latest Code Status on File) Date Activated Date Inactivated Comments 04/12/2021 1:17 PM 04/13/2021 5:11 PM Question Answer Comments Code Status (Patient has no pulse and is not breathing): CPR (Attempt to Resuscitate) Medical Interventions (Patie nt has pulse or is breathing): Full Support * CPR (Attempt to Resuscitate) Date Activated Date Inactivated Comments 11/13/2017 10:38 AM 11/15/2017 4:11 PM Question Answer Comments Code Status (Patient has no pulse and is not breathing): CPR (Attempt to Resuscitate) Medical Interventions (Patie nt has pulse or is breathing): Full Level Of Support Discussed With: Patient Care Teams Claim Processor Relationship Specialty Start Date End Date Camron Hogue MD PCP - General Emergency Medicine 04/10/21
--- OUTSIDE RECORDS SUMMARY | 2024-10-28 12:59 | XMS_ITS | Clinical Summary ---
Author Organization [facility] [employer] ([place], [place], [place], [place]) Address [address] [place] [id number] Care Team Providers Care Recreation Attendant Name Role Phone Unavailable Primary Care [...]
--- OUTSIDE RECORDS SUMMARY | 2024-10-28 12:59 | XMS_ITS | Encounter Summary ---
Author Organization [employer] ([place], [place], [place], [place]) Address [address] [place] [address] Care Team Providers Care Extension Clerk Name Role Phone Unavailable Primary Care Provider Unavailabl e Encounter Details Date Type Department Care Team (Late st Contact Info) Description 03/10/2019 Transcribed Document [facility] [place] [address] ProviderZaid MD [facility] [place] [address] Social History Tobacco Use Types Packs/Day Years Used Date Smoking Tobacco: Never Assessed Comments Unknown Sex and Gender Information Value Date Recorded Sex Assigned at Not on file Legal Sex Female 6:51 PM CDT Gender Identity Not on file Sexual Orientation Not on file documented as of this encounter Miscellaneous Notes * Cerner Conversion Note - Zaid Rutherford MD - 03/10/2019 11:24 AM 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 [facility] [place] [address] EDBORA KILGORE :1955 Visit Time:03/10/2019 Your Visit Summary Your Care Team Admitting Physician - CARY NOLAN MD-CAR Attending Physician - CARY NOLAN MD-CAR Primary Care Physician - AKBAR ELIAS MD Referring Physician - CARY NOLAN MD-CAR Your Diagnosis Abnormal result of other cardiovascular function study, Abnormal result of other cardiovascular function study Discharge Vitals Temperature 36.3 ??C Heart Rate (Monitored) 68 Respiratory Rate 16 Blood Pressure 146/83 What to do next Instructions From Your Care Team Do not drive for 24 hours after the procedure you may resume your diet as tolerated, drink fluids as directed to flush dye from you do not lift over one pound with your right arm for the next 2 days or any exertional activity You may remove the dressing from your right arm tomorrow and then shower. When you clean the arm, gently clean the site with soap and water daily, do not scrub at the site. No soaking the area under water until the incision has fully healed. If bleeding, apply pressure as shown and call 911 Follow post radial arm instructions, see attached sheet. STOP ASPIRIN CHANGE METOPROLOL TO 50MG AT 6pm daily Monitor your blood pressure twice a day and record the readings. Exercise as directed by Dr. Nolan Follow-Up Appointments Follow Up with AKBAR ELIAS MD When Comments Keep your appointment with Dr. Elias as scheduled, notify sooner if any problems Where: [address] [place] [address] [place] [address]- Medications What How Much When Instructions Next Dose ascorbic acid (Vitamin C) 2,000 Milligram(s) Oral Every Day 03/10/19 aspirin 325 Milligram(s) Oral Every Day STOP ASPIRIN famotidine (famotidine 20 mg oral tablet) 1 Tablet(s) Oral Every Day 03/10/19 levothyroxine (levothyroxine 100 mcg (0.1 mg) oral tablet) 1 Tablet(s) Oral Every Day 03/10/19 metoprolol (Toprol-XL 25 mg oral tablet, extended release) 0.5 Tablet(s) Oral Every Day CHANGE TO 50mg at 6pm daily 03/10/19 naproxen (naproxen sodium 220 mg oral capsule) 2 Capsule(s) Oral Every Day STOP NAPROXEN per DR. Nolan Take your medications faithfully. Do NOT skip medication. Do NOT stop taking medications without the direction of a physician. Carry a list of your medications with you at all times, and take this medication list with you to your first follow up visit. Report any side effects. Avoid herbal remedies unless discussed with your physician. As part of your treatment plan, your physician may have prescribed a limited course of a controlled substance. This medication may be given to help people with moderate or severe pain or for other medical conditions, but there are risks involved with treatment. Common side effects may include nausea, constipation, drowsiness, sweating, itching, dry mouth, and rash. More serious side effects may include cognitive and motor impairment, like problems with thinking, concentrating, alertness, and movement (e.g. slowed reflexes), and driving and operating heavy machinery can be dangerous. It is important for you to talk to your physician if you have these side effects or questions. These controlled substances can produce physical dependence and be habit-forming if taken for an extended period of time, which means that the body has gotten used to them and may experience withdrawal symptoms if they are abruptly stopped. Withdrawal symptoms can include runny nose, sweating, goose bumps, diarrhea, abdominal cramping, rapid heartbeat, difficulty sleeping, and nervousness. Please dispose of unused and medications per your retail pharmacy guidance. Allergies No Known Allergies Immunizations This Visit No Immunizations Found Education Materials Hypertension Hypertension, commonly called high blood pressure, [...] be at higher risk if you are -[place]. ??? Gender. Men are at higher risk [...] of beer, 5 oz of wine, or 1?? oz of hard liquor. Lifestyle ??? Work [...] provider. This is important. Medicines ??? Take widv-wer-acqbqlz and prescription medicines only as told by [...] 02/17/2006 Document Revised: 01/15/2017 Document Reviewed: 01/15/2017 [employer] Patient Education ?? 2019 [employer] Moderate Conscious Sedation, Adult, Care After [...] you are awake and alert. ??? Take ddjs-frf-wmnljzb and prescription medicines only as told by [...] 12/08/2013 Document Revised: 07/22/2016 Document Reviewed: 06/08/2016 [employer] Patient Education ?? 2019 [employer] Radial Site Care Refer to this sheet in [...] the radial site that usually fades within 1???2 weeks. ??? Blood collecting in the tissue (hematoma) that may be painful to the touch. It should usually decrease in size and tenderness within 1???2 weeks. Follow these instructions at home: ??? Take medicines only as directed by your health care provider. ??? You may shower 24???48 hours after the procedure or as directed [...] 03/22/2011 Document Revised: 07/25/2016 Document Reviewed: 09/05/2014 [employer] Patient Education ?? 2019 [employer] Angiogram, Care After This sheet gives you [...] and water are not available, use hand mushroom growing supervisor. ? Change your dressing as told by [...] care provider approves. ??? You may shower 24???48 hours after the procedure or as told [...] by your health care provider, usually for 1???2 days. ??? Do not lift anything that [...] contrast dye from your body. ??? Take uosc-mfe-shnymuz and prescription medicines only as told by [...] okay to do so. You may shower 24???48 hours after the procedure or as told [...] 09/05/2005 Document Revised: 01/22/2017 Document Reviewed: 01/22/2017 [employer] Patient Education ?? 2019 [employer]. Emergency Awareness and Preventative Care STROKE is an EMERGENCY Every Minute Counts Act FAST and Check for these signs: FACE Does the face look uneven? ARM Does one arm drift down? SPEECH Does their speech sound strange? TIME Call at any sign of stroke Stroke Risk Factors Atrial Fibrillation (irregular heartbeat) Diabetes Family history of stroke Heart Disease Heavy alcohol use High Blood Pressure High Cholesterol Physical inactivity and obesity Smoking Cigarette Smoking The facts are clear, cigarette smoking will shorten your life. Smoking can cause many illnesses along the way. As a healthcare provider, we recommend that you stop smoking. Assistance with quitting is available by contacting 2-936-XKCP-NOW. This is a free resource providing counseling, support, and referral. Or you may contact your personal physician. National Suicide Prevention Lifeline: The National Suicide Prevention Lifeline is a national network of local crisis centers that provides free and confidential emotional support to people in suicidal crisis or emotional distress 24 hours a day, 7 days a week. Don't Wait! Stop a Heart Attack Before it Starts What is a heart attack? A heart attack is damage or to a part of the heart from severely decreased or lack of blood flow to the heart. Over time, arteries can become narrow from the buildup of fat and cholesterol, which is called plaque. The plaque can rupture causing a blood clot to form. When the blood clot forms, the artery can become severely narrowed or completely blocked, causing a heart attack. Heart attack is the leading cause of in the [place]. 85% of muscle damage occurs within the first 2 hours. Delay in the recognition of heart attack symptoms increases the chances of . Know the early symptoms of a heart attack: Nausea Feeling of fullness in chest Jaw Pain Pain that travels down one or both arms Fatigue/being tired Anxiety Back Pain Chest pressure, squeezing, or discomfort Shortness of breath Sweating, or a cold sweat Feeling of impending doom There are unusual signs of a heart attack, too! Women, the elderly, and diabetics may present with atypical symptoms: Fainting/dizziness Weakness Confusion Risk Factors for a Heart Attack Some heart disease risk factors, such as age and family history, cannot be changed. Others, like smoking and lack of exercise, can be changed. Smoking High Cholesterol High Blood Pressure Family History Obesity Age Gender (Males are at higher risk) Lack of Exercise Diabetes Diet Stress Excessive Alcohol Intake If you or someone you know is experiencing the signs and symptoms of a heart attack, DON???T DELAY. Call immediately and seek help. If someone collapses, perform CPR! Do not attempt to drive if you are having symptoms of heart attack. Hands-Only CPR Why Hands-Only CPR? Hands-Only CPR has been shown to be as effective as conventional CPR for cardiac arrests that occur outside of a hospital. Survival depends on immediately receiving CPR from someone nearby. How do you perform Hands-Only CPR? There are two easy steps: Call if you see a teen or adult collapse Push hard and fast in the center of the chest at a beat of 100 beats per minute. Save a life! 4 WAYS TO GET AHEAD OF SEPSIS SEPSIS is a MEDICAL EMERGENCY. Time matters! Infections put you and your family at risk for a life-threatening condition called sepsis. Sepsis is the body's extreme response to an infection. It is life-threatening, and without timely treatment, sepsis can rapidly lead to tissue damage, organ failure, and . Sepsis happens when an infection you already have-in your skin, lungs, urinary tract or somewhere else-triggers a chain reaction throughout your body. 1 PREVENT INFECTIONS Take good care of chronic conditions. Talk to your doctor about getting the recommended vaccines. 2 PRACTICE GOOD HYGIENE Wash your hands frequently. Keep cuts or open sores clean and covered until they are healed. 3 KNOW THE SYMPTOMS Confusion or disorientation Shortness of breath High heart rate Fever, shivering, or feeling very cold Extreme pain or discomfort Clammy or sweaty skin 4 ACT FAST Get medical care IMMEDIATELY if you suspect sepsis or if you have an infection that is not getting better or is getting worse. To learn more about sepsis and how to prevent infections, visit www.cdc.gov/sepsis. Test Results Laboratory or Other Results This Visit (last charted value for your 03/10/2019 visit) Hematology 03/10/2019 6:07 AM Platelet Count: 368 K/uL -- Normal range between ( 163 and 369 ) Cardiac Specific Markers 03/10/2019 8:10 AM ProBNP: 159 pg/mL -- Normal range between ( 0 and 125 ) Coagulation 03/10/2019 8:10 AM D Dimer Quant: See comment mg/L FEU -- Normal range between ( 0.00 and 0.58 ) Patient Name:LORAHENRIETTADonnell DEBORA CERON I have received and understand this information and was given the opportunity to ask questions. Patient/Slasher Name: Patient/Slasher Signature: Relationship to Patient: Clinician/Hospital Slasher Signature: Date: documented in this encounter Plan of Treatment Not on file documented as of this encounter Visit Diagnoses Not on filedocumented in this encounter
--- OUTSIDE RECORDS SUMMARY | 2024-10-28 12:59 | XMS_ITS | Encounter Summary ---
[facility] Address [address] [place] [address] Care Team Providers Care Autism Specialist Name Role Phone Camron Hogue MD Primary Care Provider [phone] Reason for Visit * Reason Onset Date Comments [facility] 09/16/2024 Encounter Details Date Type Department Care Team (Late st Contact Info) Description 09/16/2024 Telephone [facility] CARD[facility]OLOG[facility] [address] [place] [address] Silvia Cash, PATTERN DEVELOPER [address] [place] [address] [place] [address] [facility] Social History Tobacco Use Types Packs/Day Years Used Date Smoking Tobacco: Former Cigarettes 0.5 15 0 03/03/1983 - 03/03/1998 Smokeless Tobacco: Never Alcohol Use Standard Drinks/Week Comments No 0 (1 standard drink = 0.6 oz pur e alcohol) Comments No Sex and Gender Information Value Date Recorded Sex Assigned at Female 08/10/2024 9:32 AM EDT Legal Sex Female 10:43 AM EDT Gender Identity Not on file Sexual Orientation Not on file documented as of this encounter Miscellaneous Notes * Telephone Encounter - Trish Macias MA - 09/16/2024 1:51 PM EDT Called and spoke to patient, she states she is having tightness in chest coming and going. BP was 141/87 HR 85. I advised patient to go to the ER multiple times and she refused. She states she will try to get in with her PCP to have them order some labs for her. I have also scheduled appointment next available for September 28 in [place] for her. * Telephone Encounter - Vivi Black RN - 09/16/2024 12:19 PM EDT Please call pt and schedule OV ANDRAE. * Telephone Encounter - Vivi Black RN - 09/16/2024 12:11 PM EDT Called pt with her symptoms of chest tightness and SOA, Strongly advised pt to go to ER, however, she declines. She relates she is just concerned as her symptoms are coming more so during the heat. Coughing relieves her symptoms. She wishes to be seen in [place] and is willing to see an PATTERN DEVELOPER. Again,she is strongly advised if symptoms should change increase or fail to resolve to promptly seek medical attention. She verbalizes understanding. * Telephone Encounter - Danita Monaco RegSched Rep - 09/16/2024 11:37 AM EDT Delete after reviewing: Send to the appropriate pool. Check your call action grid or workflows. Caller: Debora Rockwell Relationship: [email or web address] Best call back number: [phone] What is your medical concern? PT IS HAVING SHORTNESS OF BREATHE AND TIGHTNESS IN THE CHEST. SYMPTOMS COME AND GO How long has this issue been going on? SINCE 09/10/24 documented in this encounter Plan of Treatment Upcoming Encounters Date Type Department Care Team (Late st Contact Info) Description 02/10/2025 9:30 AM EST Ancillary Procedure [facility] CARDIOLOGY [address] [place] [id number] 02/10/2025 10:00 AM EST Office Visit [facility] C[facility] [address] [place] [phone] Silvia Cash, PATTERN DEVELOPER [address] [place] [address] [place] [address] documented as of this encounter Visit Diagnoses Not on filedocumented in this encounter Care Teams Autism Specialist Relationship Specialty Start Date End Date Camron Hogue MD PCP - General Emergency Medicine 04/10/21 documented as of this encounter
== END 2024-10-28 23:59 | disposition home or self-care (01) ==
LOC: RAD 12:55
PROVIDERS: Visit Provider Physician Assistant Surgical
DX: M25.562 Pain in left knee (principal)
CPT/HCPCS: 73562